=== PATIENT | male | born 1955 | race Caucasian/White ===

== ENCOUNTER → 2016-05-11 | Outpatient (CLI) | payer OTHER ==
--- NOTE | 2016-05-11 16:48 | MR ---
MRI Cervical Spine (Without Contrast) History: Persistent neck and arm pain in a 60-year-old male with a known history of cervical spinal c ord glioma. Technique: Sagittal T1, T2 and STIR sequences as well as axial T2 and 3-D gradient echo MR sequences of the cervical spine are obtained without contrast. Comparison: Comparison to the prior cervical spine MRI study from February 09, 2015. Findings: Cervical vertebral bodies are normal height, signal intensity and alignment without comp ression fractures or spondylolisthesis. The craniovertebral junction and the C1-C2 articulation are normal. Cerebellar tonsils are in normal position. Again noted is an expansile mass centrally within the cervical cord extending from the C3-C4 to the C4-C5 level. The mass measures 2.6 cm cephalocauda l x 0.5 cm AP x 0.9 cm transverse. This is unchanged in size. There is mild expansion of the cord wit hout resulting canal stenosis. There is no edema in the cord above or below the level of the lesion. C2-C3: Negative for disk herniation, canal stenosis or nerve root compression. C3-C4: Negative for disk herniation or cord compression. Facet hypertrophy is noted with mild bilater al neural foraminal impingement. C4-C5: Mild disk space loss is seen without disk herniation or cord compression. Mild right neural fo raminal impingement is seen. C5-C6: Disk space loss and vertebral body osteophytic lipping combines with facet hypertrophy, result ing in a central canal at the lower limits of normal in size. Bilateral neural foraminal impingement is noted, mild-moderate on the right and mild on the left. C6-C7: Disk space loss and vertebral body osteophytic lipping are noted, more prominent on the left s james. There is mild cord compression with slight rotation of the cord away from the left lateral reces s. Bilateral neural foraminal impingement is seen and the findings have not changed significantly. C7-T1: Disk space loss is seen without disk herniation or cord compression. Endplate degenerative juan nges are noted. There is no significant neural foraminal impingement. Impression: 1. Stable appearance of the central cervical spinal cord glioma at the C3-C4 level. 2. Multilevel degenerative changes as detailed above, with findings at specific levels not significan tly changed from 2014.
== END ==
LOC: FIMAGING 14:07
PROVIDERS: ATTEND Physical Medicine & Rehabilitation
DX: C72.0 Malignant neoplasm of spinal cord (principal); M50.30 Other cervical disc degeneration, unspecified cervical region